=== PATIENT | male | born 1985 | race Caucasian/White ===

== ENCOUNTER 2020-12-28 06:27 | Emergency (ER) | payer OTHER ==
[~2020-12-28] VITALS: Ht 167.6 cm; Wt 71.7 kg
[2020-12-28 06:38] VITALS: Ht 167.6 cm; Wt 71.7 kg
[2020-12-28] MEDS ORDERED: AUGMENTIN 875-1 EACH PO (07:37)
[2020-12-28 07:53] VITALS: BP 121/83
== END 2020-12-28 07:53 | disposition home or self-care (01) ==
LOC: ED 06:27
DX: S51.851A Open bite of right forearm, initial encounter (principal); F17.210 Nicotine dependence, cigarettes, uncomplicated; W54.0XXA Bitten by dog, initial encounter; Y93.89 Activity, other specified; Y92.89 Other specified places as the place of occurrence of the external cause; Y99.8 Other external cause status
CPT/HCPCS: 90715